=== PATIENT | male | born 1995 | race Caucasian/White ===

== ENCOUNTER 2021-06-18 17:42 | Emergency (ER) | payer SELFPAY ==
[~2021-06-18] VITALS: Ht 167.6 cm; Wt 72.6 kg
[2021-06-18 17:44] VITALS: BP 115/64
[2021-06-18] MEDS ORDERED: BACITRACIN OINT 500 UNITS/GM PKT TP ONE ×2 (17:54→18:00)
--- NOTE | 2021-06-18 18:05 | NUR ---
PT BIB [facility] S/P PREBOOK C/O FINGER PAIN 3/10 TO LEFT MIDDLE, NO ACTIVE BLEEDING NOTED. AAOX4, PERRL, WITH EVEN AND STEADY GAIT; LUNGS CLEAR BL, BREATHING UNLABORED; HR EVEN AND REGULAR, BL PERIPHERAL PULSES PRESENT. PT DENIES ANY FEVER, CP, SOB, OR COUGH AT THIS TIME; PT STATES 4/10 PAIN AT THIS TIME; VSS;
[2021-06-18 18:28] VITALS: BP 111/62
--- NOTE | 2021-06-18 18:29 | NUR ---
Patient discharged with v/s stable. Written and verbal after care instructions given and explained. Patient alert, oriented and verbalized understanding of instructions. Police with in custody. All questions addressed prior to discharge. ID band removed. Patient advised to follow up with PMD. NO Rx given. Patient educated on indication of medication including possible reaction and side effects. Opportunity to ask questions provided and answered.
== END 2021-06-18 18:29 ==
LOC: MED 17:42
DX: S61.213A Laceration without foreign body of left middle finger without damage to nail, initial encounter (principal); X58.XXXA Exposure to other specified factors, initial encounter; Y93.89 Activity, other specified; Y92.89 Other specified places as the place of occurrence of the external cause; Y99.8 Other external cause status
CPT/HCPCS: 73140; 90471; 90715; 99283; Q0092